=== PATIENT | male | born 1980 | race Caucasian/White ===

== ENCOUNTER → 2018-04-19 | Outpatient (CLI) | payer BC ==
[~2018-04-19] MED LIST: ASP325 PO; CIPR-344 PO; FAMO20TA28 PO; HYDR-389 PO; IBUP800T37 PO; LOR5 PO; LOR5/325 PO; NO MEDICATIONS; PER PO; WAR5 PO; [UNRECOGNIZED DRUG - CODE] PO
[2018-04-19 15:53] LABS: PLATELET COUNT, AUTOMATED 179 K/uL (150-450)
--- NOTE | 2018-04-19 16:30 | EKG ---
FACILITY: [facility] [place] PATIENT NAME: SHIVANI RING : [id number] MR: [id number]: [id number] EXAM DATE: ORDERING PHYSICIAN: JUNO OLSON TECHNOLOGIST: Test Reason : Blood Pressure : / mmHG Vent. Rate : 069 BPM Atrial Rate : 069 BPM P-R Int : 184 ms QRS Dur : 150 ms QT Int : 412 ms P-R-T Axes : 057 019 023 degrees QTc Int : 441 ms Normal sinus rhythm Right bundle branch block Abnormal ECG No previous ECGs available Confirmed by SURENDRA GONSALEZ ([id number]) on 04/19/2018 7:06:24 PM Referred By: Confirmed By:SURENDRA GONSALEZ
== END ==
LOC: LAB 15:17
PROVIDERS: ATTEND Anesthesiology
DX: Z01.812 Encounter for preprocedural laboratory examination (principal); Z01.810 Encounter for preprocedural cardiovascular examination; I45.10 Unspecified right bundle-branch block; R94.31 Abnormal electrocardiogram [ECG] [EKG]; S83.242A Other tear of medial meniscus, current injury, left knee, initial encounter; M22.42 Chondromalacia patellae, left knee
CPT/HCPCS: 36415; 85025; 93005